=== PATIENT | male | born 1985 | race Caucasian/White ===

== ENCOUNTER 2017-12-02 11:33 | Emergency (ER) | payer SELFPAY ==
[~2017-12-02] VITALS: Ht 180.3 cm; Wt 112.1 kg
[~2017-12-02 11:33] MED LIST: NO HOME MEDS
[2017-12-02] MEDS ORDERED: HYDROcodone/acetaminophen 5mg/325mg tablet PO ONE (12:55)
[2017-12-02] MEDS ORDERED: naproxen 500mg tablet PO ONE (12:55)
[2017-12-02] MEDS ORDERED: NAPR-56 PO (12:55)
[2017-12-02 13:05] VITALS: BP 143/102
== END 2017-12-02 13:41 | disposition home or self-care (01) ==
LOC: ER 11:33
DX: S93.602A Unspecified sprain of left foot, initial encounter (principal); G89.29 Other chronic pain; W01.0XXA Fall on same level from slipping, tripping and stumbling without subsequent striking against object, initial encounter; Y93.89 Activity, other specified; Y92.89 Other specified places as the place of occurrence of the external cause; Y99.8 Other external cause status
CPT/HCPCS: 29515; 73630; 99284

== ENCOUNTER 2025-11-05 11:52 | Emergency (ER) | payer MEDICAID ==
[~2025-11-05] VITALS: Ht 180.3 cm; Wt 123.6 kg
[2025-11-05] MEDS ORDERED: PRED10TA23 PO (13:19)
--- NOTE | 2025-11-05 13:19 | Physician Documentation ---
History of Present Illness ~ Chief Complaint: Facial Swelling Stated Complaint: FACE SWELLING Time Seen by MD: 13:07 Primary Medical Doctor: NONE Mode of Arrival: POV HPI 40-year-old male presents with left sided neck swelling x1 day. Patient states he felt the swelling coming on yesterday evening while he was sleeping denies any fevers denies any recent illnesses also denies any tooth pain.. Tetanus Within 5 Years: No Medication Reconciliation Allergies: Coded Allergies: No Known Allergies (Unverified , 05/10/10) Scheduled Prednisone (Prednisone), 1 TAB PO BID Miscellaneous Medications Home Med List (No Home Medications), (Reported) Past Medical History Past Medical History: Chronic Back Pain Past Surgical History: no surgical history Alcohol Use: None Drug Use: none Lives In: Home Occupation: employed Review of Systems All Other Systems at this time: Reviewed and Negative ROS As stated above in the HPI, otherwise all systems are reviewed and negative. Physical Exam Vital Signs: Temperature: 98.3, Source: Oral, Heart Rate: 89, Respiratory Rate: 18, BP: 158/113, Pulse Oximetry: 95, Weight: 123.600 Oxygen Flow Rate: 0 Physical Exam General: Alert, no apparent distress. HEENT: PERRL, EOMI, no injection, moist mucous membranes. Non fluctuant tender mass just inferior to the left jaw. No submandibular swelling, no postauricular tenderness Neck: Full range of motion. Respiratory: Lungs clear, no respiratory distress. Cardiovascular: Regular rate and rhythm, no murmurs. Psychiatric: Normal mood and affect. Skin: Normal color, warm and dry. No edema, no ecchymosis. Progress Results/Orders Results/Orders Completed Orders - KE GONSALVES NP Dexamethasone Inj (Decadron 10mg/Ml Inj) (11/05/25 13:12) Cbc/Diff (11/05/25 13:19) BMP (11/05/25 13:19) Medications Received in ER Medications (Trade) Dose Ordered Sig/Rakel Route PRN Reason Start Time Stop Time Status Last Admin Dose Admin (Decadron 10mg/ ml inj) 10 mg ONCE STAT PO 11/05/25 13:12 11/05/25 13:13 DC 11/05/25 13:37 10 MG Vital Signs 11/05/25 11/05/25 11:57 12:59 Temp 98.3 Pulse 101 89 Resp 16 18 B/P (MAP) 140/86 158/113 (128) Pulse Ox 97 95 O2 Flow Rate 0 0 Laboratory Tests Test 11/05/25 13:27 White Blood Count 13.5 H Red Blood Count 4.69 L Hemoglobin 15.8 Hematocrit 46.4 Mean Corpuscular Volume 98.8 H Mean Corpuscular Hemoglobin 33.7 H Mean Corpuscular Hemoglobin Concent 34.1 Red Cell Distribution Width 13.0 Platelet Count 291 Mean Platelet Volume 7.4 Neutrophils (%) (Auto) 65.0 Lymphocytes (%) (Auto) 24.7 Monocytes (%) (Auto) 6.0 Eosinophils (%) (Auto) 3.4 Basophils (%) (Auto) 0.9 Neutrophils # (Auto) 8.8 H Lymphocytes # (Auto) 3.3 Monocytes # (Auto) 0.8 Eosinophils # (Auto) 0.5 Basophils # (Auto) 0.1 CBC Comment Sodium Level 141 Potassium Level 4.2 Chloride Level 105 Carbon Dioxide Level 30.2 Anion Gap 6 L Blood Urea Nitrogen 23 H Creatinine 0.84 Estimated GFR/1.73 m2 > 90 BUN/Creatinine Ratio 27.4 H Glucose Level 102 Calcium Level 9.2 Albumin 3.7 Chemistry Comments Medical Decision Making Additional information obtaine: old records Findings Highly suspicious of reactive lymph node despite patient reporting that he has not been recently ill the oral cavity there was no signs of tooth abscess or erythema or swelling. As stated in my exam no submandibular swelling or concerns over mastoiditis. In his start the patient on oral steroids and have him follow up with primary care Differential Dx:Considerations: Include: Abrasion, Contusion, Cerebral contusi on, Cervical spine injury, Closed head injury, Encephalopathy, Foreign body, Fracture, facial, Intoxication-alcohol, Intoxication-other drug, Laceration, Other Departure Disposition: 01 HOME / SELF CARE / HOMELESS Impression: Primary Impression: Reactive lymphadenopathy Additional Impression: Reactive lymphoid hyperplasia Condition: Stable Discharge Instructions: Lymphadenopathy Referrals: NO PRIMARY CARE PROVIDER (PCP) Prescriptions Prednisone (Prednisone) 10 Mg Tablet 1 TAB PO BID for 5 Days, #10 TAB Prov: KE GONSALVES NP 11/05/25 Education Educated: Patient Educated regarding: diagnosis Signature Scribe Signature: g Attestation: Scribed for Ke Gonsalves St[employer] Stitcher by Ke Perez NP . 11/05/25 13:19 KE GONSALVES NP Nov 05, 2025 13:19
[2025-11-05] MEDS: dexamethasone sod phosphate 10mg/ml inj PO STA (13:37)
[2025-11-05 13:43] LABS: MEAN PLATELET VOLUME 7.4 FL (7.4-10.4); RED CELL DISTRIBUTION WIDTH 13.0 % (11.5-14.5)
[2025-11-05 13:50] LABS: CREATININE 0.84 MG/DL (0.60-1.10); TOTAL CARBON DIOXIDE 30.2 MMOL/L (24-32); eCRCL 126 ML/MIN; eGFR > 90 ML/MIN
[2025-11-05 14:05] VITALS: BP 164/102; PULSE 81; RESP 16; TEMP 98.3; O2SAT 98
== END 2025-11-05 14:07 | disposition home or self-care (01) ==
LOC: ER 11:53
DX: R59.1 Generalized enlarged lymph nodes (principal); G89.29 Other chronic pain; Z79.899 Other long term (current) drug therapy
CPT/HCPCS: 36415; 80048; 85025; 99283; J1100